=== PATIENT | female | born 1960 | race Caucasian/White ===

== ENCOUNTER → 2022-06-29 13:50 | Outpatient (BNVA) | payer OTHER, SELFPAY | PROVIDERS: Family Provider Family Medicine; PCP Family Medicine; Visit Provider Family Medicine | DX: Z12.31 Encounter for screening mammogram for malignant neoplasm of breast (principal); N81.10 Cystocele, unspecified; N93.9 Abnormal uterine and vaginal bleeding, unspecified; Z13.6 Encounter for screening for cardiovascular disorders; R53.83 Other fatigue; J32.9 Chronic sinusitis, unspecified; M19.90 Unspecified osteoarthritis, unspecified site | CPT/HCPCS: 80053; 80061; 82306; 82607; 83540; 84443; 85025 ==

== ENCOUNTER 2022-07-07 09:02 | Outpatient (CLI) | payer OTHER, SELFPAY ==
--- NOTE | 2022-07-07 09:12 | MM_ITS ---
WS: [id number] VIEWS: MLO and CC views both breasts. 3D digital tomosynthesis is also included in this exam. Comparison made with prior exam of . 04/29/2015.. Findings: There is an 8 mm nodular density with irregular margination in the upper outer quadrant of the left b reast at mid depth. No suspicious calcification or architectural distortion in either breast. There a re additional benign-appearing nodules in both breasts. There are no new findings in the right breast since the last exam. Magnification spot compression images of the left breast in the MLO and CC view s would be recommended in addition to a 90 degrees lateral view of the left breast. Regional ultrasou nd of this area is also indicated.Scattered fibroglandular densities in both breasts. MM/[place] [id number] Impression: BI-RADS: 0-Incomplete: Need additional imaging evaluation FOLLOW-UP: See Report This mammogram was also analyzed by the Computer Aided Detection System R2 Imag e Vice President Quality Assurance.
== END 2022-07-07 09:03 | disposition home or self-care (01) ==
LOC: RAD 09:06
PROVIDERS: PCP Family Medicine; Visit Provider Family Medicine
DX: Z12.31 Encounter for screening mammogram for malignant neoplasm of breast (principal)
CPT/HCPCS: 77063; 77067; 80053; 80061; 82306; 82607; 83540; 84443; 85025

== ENCOUNTER → 2022-08-13 10:27 | Outpatient (BNVA) | payer OTHER, SELFPAY | PROVIDERS: PCP Family Medicine; Referring Provider Family Medicine; Visit Provider Obstetrics & Gynecology | DX: Z01.419 Encounter for gynecological examination (general) (routine) without abnormal findings (principal); N95.0 Postmenopausal bleeding; N84.1 Polyp of cervix uteri; N81.10 Cystocele, unspecified | CPT/HCPCS: 83036; 83525; 84443; 87624; 88305 ==

== ENCOUNTER 2022-08-16 09:10 | Outpatient (CLI) | payer OTHER, SELFPAY ==
--- NOTE | 2022-08-16 09:30 | MM_ITS ---
WS: [id number] ADDITIONAL VIEWS LEFT MAMMOGRAM with tomosynthesis. LEFT BREAST ULTRASOUND HISTORY: ABNORMAL MAMMO COMPARISON: 07/07/2022, 04/29/2015 LEFT MAMMOGRAM: Spot compression views and true ML with tomosynthesis and sympathetic mammography. New slightly spiculated nodule persists upper outer quadrant of the LEFT breast near 2:00 middle dept h. Asymmetry measures approximately 5 to 6 mm. Margins are very slightly lobulated. LEFT BREAST ULTRASOUND 2-D and color Doppler imaging submitted. Hypoechoic mass with shadowing in the LEFT breast at 2:00, 5 cm from nipple measures 3.3 x 3 mm. This corresponds to the mammographic abnormality. MM/[place] [id number] IMPRESSION: BI-RADS: 4-Suspicious Finding-Biopsy Should Be Considered FOLLOW UP: Biopsy Recommended Ultrasound-guided biopsy recommended shadowing hypoechoic mass LEFT breast at 2 :00. Notified Daisy Chino MD at 08/16/2022 11:07 AM.
== END 2022-08-16 09:11 | disposition home or self-care (01) ==
PROVIDERS: PCP Family Medicine; Visit Provider Family Medicine
DX: R92.8 Other abnormal and inconclusive findings on diagnostic imaging of breast (principal); N63.11 Unspecified lump in the right breast, upper outer quadrant
CPT/HCPCS: 76642; 77061; G0279

== ENCOUNTER 2022-09-01 13:37 | Outpatient (CLI) | payer OTHER, SELFPAY ==
--- NOTE | 2022-09-01 14:00 | US_ITS ---
WS: [id number] ULTRASOUND-GUIDED LEFT BREAST BIOPSY CLINICAL INFORMATION: ABNORMAL MAMMO COMPARISON: August 16, 2022 FINDINGS: The procedure including risks, benefits, and complications were discussed with the patient who agreed to proceed. Using sterile technique patient was prepped and draped in the usual sterile fashion. Aft er 1% lidocaine utilizing real-time ultrasound guidance 5 14-gauge cores were obtained of the LEFT br east lesion at the 2:00 o'clock position 5 cm from the nipple. Subsequently a titanium clip was place d in the biopsy cavity. No immediate complications. PATHOLOGY DEMONSTRATES Breast, left, 2 o'clock, 5 cm from nipple, ultrasound-guided biopsy: - Benign breast tissue with fibro-adenomatoid change and focal calcification. - No malignancy identified. US/[place] [id number] IMPRESSION: 1. Uncomplicated ultrasound-guided LEFT breast biopsy. 2. The pathology demonstrates benign breast tissue with fibroadenomatoid trevino e. No malignancy. 3. Recommend return to annual screening mammography. BI-RADS: 2-Benign FOLLOW UP: 1 Year Follow-up
== END 2022-09-01 13:38 | disposition home or self-care (01) ==
LOC: RAD 13:49
PROVIDERS: PCP Family Medicine; Visit Provider Family Medicine
DX: R92.8 Other abnormal and inconclusive findings on diagnostic imaging of breast (principal); N81.4 Uterovaginal prolapse, unspecified; R93.89 Abnormal findings on diagnostic imaging of other specified body structures
CPT/HCPCS: 19083; 76830; 88305

== ENCOUNTER → 2022-09-16 11:05 | Outpatient (BNVA) | payer OTHER, SELFPAY | PROVIDERS: PCP Family Medicine; Visit Provider Obstetrics & Gynecology | DX: Z01.419 Encounter for gynecological examination (general) (routine) without abnormal findings (principal) | CPT/HCPCS: 87624 ==

== ENCOUNTER 2022-09-21 10:37 | Day surgery (SDC) | payer OTHER, SELFPAY ==
[2022-09-20 09:39] VITALS: BMI 41.1
[2022-09-21] VITALS (9 sets, daily range): BP systolic 121–188; BP diastolic 73–101; PULSE 63–77; RESP 10–25; TEMP 36.1–36.7; O2SAT 92–98
[2022-09-21] MEDS: sodium chloride 0.9% 1,000 ML 30 ML IV (11:28)
--- NOTE | 2022-09-21 12:12 | W.PM.OPSUD ---
Surgery/Procedure H&P Update DATE OF PROCEDURE: September 21, 2022 DATE H&P PERFORMED: 09/16/22 H&P UPDATE INFORMATION: I have reviewed H&P completed within last 30 days, I have examined patient prior to procedure and No changes to prior documentation PREOP DIAGNOSIS: morbid obesity, pmb, thickened endometrium PLANNED PROCEDURE: Operation Date: 09/21/22 12:25 Proposed Procedures p Hysteroscopy, dilation and curettage with Myosure 35757,[id number],N95.0(Not Applicable) - Virginia Resendiz MD s Dilation And Curettage (D&C)(Not Applicable) - Virginia Resendiz MD Related Problem List Diagnoses (1) Thickened endometrium: (2) Morbid obesity: (3) PMB (postmenopausal bleeding):
--- NOTE | 2022-09-21 12:35 | P.ANESASSM_ITS ---
Pre-Anesthetic Assessment Height/Weight: Height 1.63 m Weight 108.862 kg Temp Pulse Resp BP Pulse Ox O2 Del Method 97.3 F L 71 18 157/94 96 Room Air 09/21/22 10:55 09/21/22 10:55 09/21/22 10:55 09/21/22 11:23 09/21/22 10:55 09/21/22 11:01 Preop Diagnosis: morbid obesity, pmb, thickened endometrium Operation Date: 09/21/22 12:25 Proposed Procedures p Hysteroscopy, dilation and curettage with Myosure [id number],N95.0(Not Applicable) - Virginia Resendiz MD s Dilation And Curettage (D&C)(Not Applicable) - Virginia Resendiz MD Familial anesthetic complications: none Was Beta Lamont taken within 24 hours: N/A Was Clonidine taken within 24 hours: N/A Last intake: Intake Last Liquid Date 09/20/22 Last Liquid Time 21:00 Last Solid Date 09/20/22 Last Solid Time 20:30 Social No alcohol and No tobacco Exam alert, oriented x 3, clear to auscultation bilaterally and regular rate & rhythm Airway Submandibular: within normal limits Cervical ROM: within normal limits Mallampati: Class II Dentition: full Metabolic Diabetes Mellitus and Morbid Obesity [facility] [place] Osteoarthritis/DJD Anesthetic Plan ASA status: 2 Anesthesia: General Medications/Allergies Home Medications Medication Instructions Recorded Confirmed Last Taken Type loratadine 10 mg tablet (Claritin) 10 mg PO DAILY PRN allergic 06/29/22 09/20/22 09/20/22 History symptoms ergocalciferol (vitamin D2) 1,250 1,250 mcg PO .weekly #4 caps 08/12/22 09/20/22 09/16/22 Rx mcg (50,000 unit) capsule prenat.vits,anaya,vrk-pfob-fedfw 1 tab PO DAILY 08/13/22 09/20/22 09/20/22 History Glucosamine Chondroitin 1 tab PO BID 09/20/22 09/20/22 09/20/22 History Allergies Allergy/AdvReac Type Severity Reaction Status Date / Time Sulfa (Sulfonamide Allergy Intermediate ALGY-Rash Verified 09/20/22 09:36 Antibiotics) Current Medications Generic Name Dose Route Start Last Admin Trade Name Freq PRN Reason Stop Dose Admin Sodium Chloride 1,000 mls @ 30 mls/hr 09/21/22 10:45 09/21/22 11:28 Sodium Chloride 0.9% IV 09/22/22 10:44 30 mls/hr .Q24H MELLISSA Administration PFSH Anesthesia Medical History delivery delivered Family History Father Hypertension Mother Hypertension Denies family history of Colon cancer Ovarian cancer Diabetes Heart disease Hypercholesteremia Breast cancer Uterine cancer Thyroid disease Stroke Social History Smoking and tobacco status: never smoked Alcohol intake: former Former alcohol use details: occational alcohol Substance/Drug Use: never Adopted: No Lives independently: Yes Marital status: Current occupational exposures/hazards: No Data Anesthesia Cardiac Studies: No Data to Display
[2022-09-21] MEDS: ceFAZolin 3,000 MG in sodium chloride 0.9% (100 ml) 100 ML 200 MG IV (12:40)
--- NOTE | 2022-09-21 13:18 | P.OP_ITS ---
Operative Report Date of procedure: September 21, 2022 Pre-op diagnosis: Preop Diagnosis morbid obesity, pmb, thickened endometrium Post-op diagnosis: same Post-op findings: multiple polyps and fibroids and excessive tissue Procedure done: hysteroscopy, dilation and curettage with myosure Specimens removed/disposition: endometrial curettings to pathology Surgeon: Virginia Resendiz Anesthesia: General Estimated blood loss (mL): 0 IV fluids (mL): 400 Complications: none Findings: 8 week sized uterus 125 ml of hysteroscopy deficit Condition: stable Disposition: PACU Procedure: The patient was taken to the operating room where monitored anesthesia was administered and to be adequate. She was prepped and draped in the normal sterile fashion in the dorsal lithotomy position in [facility]. A weighted speculum was placed into the vagina and the anterior lip of the cervix grasped with a single-tooth tenaculum. The uterus was sounded to 8 cm. The cervix was dilated to 16 [place]. The hysteroscope was advanced into the endometrial cavity. There was multiple polyps and fibroids and excessive tissue visualized. The MyoSure device was activated and the tissue was removed. Pictures were taken pre and post procedure. All instruments were removed. The patient tolerated the procedure well. Sponge lap and needle counts were correct x3. She was taken to the recovery room in stable condition.
--- NOTE | 2022-09-21 13:24 | PM.DCS ---
Discharge Providers Date of Admission: 09/21/22 Date of Discharge: September 21, 2022 Attending Provider at Admission: Virginia Resendiz md Attending Provider at Discharge: Virginia Resendiz MD Primary Care Provider: Daisy Chino MD Diagnoses at Discharge Discharge Diagnosis (1) Thickened endometrium: Status: Acute (2) Morbid obesity: Status: Acute (3) PMB (postmenopausal bleeding): Status: Acute Reason for Visit Reason for Visit: N95.0 Hospital Course Hospital Course The patient was admitted for surgery. She did well postoperatively and was ready for discharge Discharge Data Studies Completed and Pending Pending at discharge Category Date Time Status Pathology: Surgical [PTH] Routine Pth 09/21/22 12:59 Ordered Vitals Last Vital Signs Temp 98.1 F 09/21/22 13:14 Pulse 63 09/21/22 13:20 Resp 11 L 09/21/22 13:20 BP 121/73 09/21/22 13:20 Pulse Ox 94 09/21/22 13:20 O2 Del Method Simple Mask 09/21/22 13:20 O2 Flow Rate 8 09/21/22 13:20 Discharge Plan Discharge Patient Disposition: Home Condition: Stable Prescriptions: Continued loratadine [Claritin] 10 mg tablet 10 mg PO DAILY PRN (Reason: allergic symptoms) prenat.vits,anaya,uzm-hokz-hxxov Tablet 1 tab PO DAILY ergocalciferol (vitamin D2) 1,250 mcg (50,000 unit) capsule 1,250 mcg PO .weekly Qty: 4 1RF Glucosamine Chondroitin 1 tab PO BID Discharge Orders: Discharge Order (Routine); Ordered 09/21/22 Ordered By: Virginia Resendiz Discharge Attestations Time Spent in Discharge Care*: less than 30 min Quality Metrics Clinical Quality Measures [ No reported AMI, CVA or VTE this stay] Coding Level of Care Code Acute Code for Chg Fwd Diagnoses Thickened endometrium R93.89 Morbid obesity E66.01 PMB (postmenopausal bleeding) N95.0
--- NOTE | 2022-09-21 13:24 | SUR.PHASEI ---
5294-Patient opened eyes and is arousable, oral airway removed
--- NOTE | 2022-09-21 14:49 | ANE.PACU2 ---
Inpatient post-anesthesia follow up: Airway intact: Yes Vital signs: Temperature 97 F Pulse Rate 71 Respiratory Rate 18 Blood Pressure 166/92 Pulse Oximetry 95 Oxygen Delivery Me thod Room Air Oxygen Flow Rate 8 Fraction of Inspir ed Oxygen Hydration adequate: Yes Nausea and vomiting: No Pain level: 2 Mental status: Baseline
== END 2022-09-21 14:19 | disposition home or self-care (01) ==
PROVIDERS: PCP Family Medicine; Visit Provider Obstetrics & Gynecology
PROC: 0UDB8ZZ Extraction of Endometrium, Via Natural or Artificial Opening Endoscopic (ICD-10-PCS; CPT 58558; principal; 2022-09-21 12:15)
PROC: (CPT 58120; 2022-09-21 12:15)
DX: D26.1 Other benign neoplasm of corpus uteri (principal); N95.0 Postmenopausal bleeding; E66.01 Morbid (severe) obesity due to excess calories; Z68.41 Body mass index [BMI] 40.0-44.9, adult; R93.89 Abnormal findings on diagnostic imaging of other specified body structures; E11.9 Type 2 diabetes mellitus without complications
CPT/HCPCS: 58558; 88305; J1100; J1200; J2405; J2704; J3010; J7030

== ENCOUNTER 2022-09-29 17:55 | Emergency (ER) | payer OTHER, SELFPAY ==
[2022-09-29 18:06] VITALS: BP 185/114; PULSE 77; RESP 16; TEMP 36.6; O2SAT 98; BMI 41.1
[2022-09-29 18:57] LABS: Basophils # 0.1 10^3/uL (0.0-0.1); Basophils % 0.4 %; Eosinophils # 0.1 10^3/uL (0.0-0.8); Eosinophils % 0.4 %; Hematocrit 42.6 % (37.0-47.0); Hemoglobin 13.5 g/dL (11.5-15.3); Lymphocytes # 2.3 10^3/uL (0.8-4.8); Lymphocytes % 14.1 %; Mean Corpuscular HGB Conc 31.7 g/dL (30.0-36.0); Mean Corpuscular Hemoglobin 27.6 pg (28.0-34.0); Mean Corpuscular Volume 87.1 fl (81-99); Mean Platelet Volume 10.2 fL (7.4-10.4); Monocytes # 1.1 10^3/uL (0.2-0.9); Monocytes % 6.4 %; Neutrophils # 12.76 10^3/uL (1.8-7.7); Neutrophils % 78.2 %; Nucleated Red Blood Cells % 0 %; Platelet Count 293 10^3/cmm (130-400); Red Blood Count 4.89 10^6/uL (4.1-5.3); Red Cell Distribution Width 14.4 % (12.1-15.1); White Blood Count 16.3 10^3/uL (4.0-10.0)
[2022-09-29 20:10] VITALS: BP 167/99; PULSE 71; RESP 19; TEMP 36.8; O2SAT 96
[2022-09-29 20:16] LABS: Alanine Aminotransferase 18 U/L (0-33); Albumin Level 3.9 g/dL (3.5-5.2); Anion Gap 16.5 (5-19); Aspartate Amino Transferase 15 U/L (0-32); Blood Urea Nitrogen 15 mg/dL (8-23); Calcium 8.7 mg/dL (8.5-10.5); Carbon Dioxide 24 mmol/L (22-29); Chloride 103 mmol/L (98-107); Creatinine Clr Calc Pharmacy 78.1325; Globulin 2.6 g/dL (1.3-4.6); Glomerular Filtration Rate 63.4 mL/min (90-130); Glucose 131 mg/dL (65-115); Osmolality Calculated 293 mOsm/kg (285-295); Potassium 3.5 mmol/L (3.5-5.1); Sodium 140 mmol/L (136-145); Total Bilirubin 0.6 mg/dL (0.15-1.2); Total Protein 6.5 g/dL (6.6-8.7)
[2022-09-29 20:17] LABS: Alkaline Phosphatase 79 U/L (35-105); Lipase 24 U/L (13-60)
[2022-09-29 21:44] LABS: Add Urine Microscopic? YES; Bilirubin Urine Neg (Negative); Blood Urine 3+ (Negative); Glucose Urine UA Norm (Normal); Ketones Urine 1+ (Negative); Leukocyte Esterase Urine Negative (Negative); Nitrate Urine Negative (Negative); Protein Urine Neg (Negative); Urine Appearance Clear (CLEAR); Urine Color Yellow (Yellow); Urobilinogen Urine Neg (Negative); WBC Urine 0-4 /hpf (0-5); pH Urine 5 (5-7)
[2022-09-29 21:45] LABS: Add Urine Culture? No; Bacteria Urine 1+ /hpf; Mucus Urine 2+ /hpf
--- NOTE | 2022-09-29 22:27 | CTR_ITS ---
PROCEDURE INFORMATION: Exam: CT Abdomen And Pelvis Without Contrast Exam date and time: 09/29/2022 10:35 PM Age: 62 years old Clinical indication: Nausea and vomiting; Abdominal pain; Prior surgery; Surgery date: 6+ months; Surgery type: Csection; Patient HX: Left flank pain with n/v TECHNIQUE: Imaging protocol: Computed tomography of the abdomen and pelvis without contrast. Radiation optimization: All CT scans at this facility use at least one of these dose optimization techniques: automated exposure control; mA and/or kV adjustment per patient size (includes targeted exams where dose is matched to clinical indication); or iterative reconstruction. REPORTING DATA: Count of CT and Cardiac NM exams in prior 12 months: This patient has received 0 known CTs and 0 known cardiac nuclear medicine studies in the 12 months prior to the current study. COMPARISON: US transvaginal [id number] 09/01/2022 8:15 AM RADIATION DOSE METRICS: Total DLP (mGy-cm): 1032.43 FINDINGS: Liver: Hepatic steatosis. Gallbladder and bile ducts: Cholelithiasis. Pancreas: Normal. No ductal dilation. Spleen: Normal. No splenomegaly. Adrenal glands: Normal. No mass. Kidneys and ureters: Mild left hydronephrosis and hydroureter with a 3.4 mm left ureterovesical junction calculus. Mild associated left perinephric edema, please correlate for possible pyelonephritis. Stomach and bowel: Small hiatal hernia. Appendix: No evidence of appendicitis. Intraperitoneal space: Supraumbilical and umbilical small to moderate-sized omental fat containing hernias. Vasculature: Unremarkable. No abdominal aortic aneurysm. Lymph nodes: Unremarkable. No enlarged lymph nodes. Urinary bladder: Unremarkable as visualized. Reproductive: Unremarkable as visualized. Bones/joints: Unremarkable. No acute fracture. Soft tissues: Unremarkable. CT/CT kidney stone [id number] IMPRESSION: 1. Mild left hydronephrosis and hydroureter with a 3.4 mm left ureterovesical junction calculus. Mild associated left perinephric edema, please correlate for possible pyelonephritis. 2. Supraumbilical and umbilical small to moderate-sized omental fat containing hernias. 3. Hepatic steatosis. 4. Cholelithiasis. 5. Small hiatal hernia.
[2022-09-29 22:30] VITALS: BP 173/103; PULSE 81; RESP 24; O2SAT 99
--- NOTE | 2022-09-29 22:31 | W.ED.ABDPA2 ---
HPI - Abdominal Pain General: Chief Complaint: Abdominal Pain Stated Complaint: abd pain Time Seen by Provider: 09/29/22 21:58 Source: patient Mode of arrival: ambulatory Limitations: no limitations History of Present Illness: 62-year-old female who states that she started having severe left-sided flank pain this morning states it feels like it comes in waves pain is a 9 out of 10 she states that nothing makes it worse denies any tenderness to touch states she has had vomiting with her pain no history of kidney stones denies any dysuria denies any fevers. Associated Symptoms: Reports nausea and vomiting; Denies chills, diarrhea, dysuria and fever(s) Review of Systems Const: Denies: fever(s) or chills Eyes: Denies: eye discomfort ENMT: Denies: throat pain or dental pain Card: Denies: chest pain Resp: Denies: dyspnea GI: Reports: nausea and vomiting; Denies: abdominal pain or diarrhea : Reports: flank pain; Denies: dysuria Musc: Denies: neck pain or back pain Skin/Breast: Denies: rash Neuro: Denies: headache(s) PFSH ED PFSH: Medical History delivery delivered Family History Father Hypertension Mother Hypertension Denies family history of Colon cancer Ovarian cancer Diabetes Heart disease Hypercholesteremia Breast cancer Uterine cancer Thyroid disease Stroke Social History Smoking and tobacco status: never smoked Alcohol intake: former Former alcohol use details: occational alcohol Substance/Drug Use: never Adopted: No Lives independently: Yes Marital status: Current occupational exposures/hazards: No Physical Exam Const: COMMON NORMALS: no acute distress, patient oriented x3 and healthy appearing HENMT: COMMON NORMALS: normocephalic and atraumatic HEAD & SCALP: normocephalic and atraumatic Eye: COMMON NORMALS: conjunctivae normal CONJUNCTIVA: Yes conjunctivae normal Neck/C-Spine: COMMON NORMALS: full ROM and supple Chest: COMMONS NORMALS: normal inspection of the chest and normal palpation of entire chest wall Resp: COMMON NORMALS: normal respiratory effort, No retractions, No use of accessory muscles and clear to auscultation bilaterally AUSCULTATION: clear to auscultation bilaterally Cardio: COMMON NORMALS: regular rate, regular rhythm and No murmurs present (Cardio) RATE: regular rate RHYTHM: regular rhythm GI: COMMON NORMALS: Normal to inspection, nondistended, normoactive bowel sounds present, Soft to palpation, non-tender and no masses PALPATION: Yes Soft to palpation Extremity: COMMON NORMALS: normal to inspection and full ROM Neuro: COMMON NORMALS: patient oriented x3, moves all extremities and no focal motor deficits Psych: COMMON NORMALS: mental status grossly normal, Normal thought process present and cooperative THOUGHT PROCESS: Normal thought process present Skin: COMMON NORMALS: no rashes or lesions noted and no wounds GENERAL SKIN EXAM: no rashes or lesions noted Course Vital Signs: Vital signs: Vital Signs Temperature 98.2 F 09/29/22 20:10 Pulse Rate 81 09/29/22 22:30 Respiratory Rate 22 H 09/29/22 22:48 Blood Pressure 173/103 09/29/22 22:30 Pulse Oximetry 99 09/29/22 22:30 Oxygen Delivery Me thod Room Air 09/29/22 22:30 MDM - Abdominal Pain Medical Decision Making Patient presents here with flank pain she does have a kidney stone she should build pass the stone her pain is improved here she stable for discharge we will discharge with a strainer she is to follow-up return if worsening we will place her on hydrocodone for pain. Medical Records I reviewed the patient's medical records. Lab Data I reviewed the patient's lab results. 09/29/22 18:36 09/29/22 18:36 Labs/Radiology: Radiology Impressions Abdomen/Pelvis CT 09/29/22 22:27 IMPRESSION: 1. Mild left hydronephrosis and hydroureter with a 3.4 mm left ureterovesical junction calculus. Mild associated left perinephric edema, please correlate for possible pyelonephritis. 2. Supraumbilical and umbilical small to moderate-sized omental fat containing hernias. 3. Hepatic steatosis. 4. Cholelithiasis. 5. Small hiatal hernia. Laboratory Results WBC 16.3 10^3/uL (4.0-10.0) H 09/29/22 18:36 RBC 4.89 10^6/uL (4.1-5.3) 09/29/22 18:36 Hgb 13.5 g/dL (11.5-15.3) 09/29/22 18:36 Hct 42.6 % (37.0-47.0) 09/29/22 18:36 MCV 87.1 fl (81-99) 09/29/22 18:36 MCH 27.6 pg (28.0-34.0) L 09/29/22 18:36 MCHC 31.7 g/dL (30.0-36.0) 09/29/22 18:36 RDW 14.4 % (12.1-15.1) 09/29/22 18:36 Plt Count 293 10^3/cmm (130-400) 09/29/22 18:36 MPV 10.2 fL (7.4-10.4) 09/29/22 18:36 Neut % (Auto) 78.2 % 09/29/22 18:36 Lymph % (Auto) 14.1 % 09/29/22 18:36 [place] % (Auto) 6.4 % 09/29/22 18:36 Eos % (Auto) 0.4 % 09/29/22 18:36 Baso % (Auto) 0.4 % 09/29/22 18:36 Neut # (Auto) 12.76 10^3/uL (1.8-7.7) H 09/29/22 18:36 Lymph # (Auto) 2.3 10^3/uL (0.8-4.8) 09/29/22 18:36 [place] # (Auto) 1.1 10^3/uL (0.2-0.9) H 09/29/22 18:36 Eos # (Auto) 0.1 10^3/uL (0.0-0.8) 09/29/22 18:36 Baso # (Auto) 0.1 10^3/uL (0.0-0.1) 09/29/22 18:36 Nucleated RBC % (auto) 0 % 09/29/22 18:36 Nucleated RBCs # 0.0 /100WBC 09/29/22 18:36 Sodium 140 mmol/L (136-145) 09/29/22 18:36 Potassium 3.5 mmol/L (3.5-5.1) 09/29/22 18:36 Chloride 103 mmol/L (98-107) 09/29/22 18:36 Carbon Dioxide 24 mmol/L (22-29) 09/29/22 18:36 Anion Gap 16.5 (5-19) 09/29/22 18:36 BUN 15 mg/dL (8-23) 09/29/22 18:36 Creatinine 0.9 mg/dL (0.5-0.9) 09/29/22 18:36 GFR Calculation 63.4 mL/min (90-130) L 09/29/22 18:36 Glucose 131 mg/dL (65-115) H 09/29/22 18:36 Calculated Osmolality 293 mOsm/kg (285-295) 09/29/22 18:36 Calcium 8.7 mg/dL (8.5-10.5) 09/29/22 18:36 Total Bilirubin 0.6 mg/dL (0.15-1.2) 09/29/22 18:36 AST 15 U/L (0-32) 09/29/22 18:36 ALT 18 U/L (0-33) 09/29/22 18:36 Alkaline Phosphatase 79 U/L (35-105) 09/29/22 18:36 Total Protein 6.5 g/dL (6.6-8.7) L 09/29/22 18:36 Albumin 3.9 g/dL (3.5-5.2) 09/29/22 18:36 Globulin 2.6 g/dL (1.3-4.6) 09/29/22 18:36 Lipase 24 U/L (13-60) 09/29/22 18:36 Urine Color Yellow (Yellow) 09/29/22 20:51 Urine Appearance Clear (CLEAR) 09/29/22 20:51 Urine pH 5 (5-7) 09/29/22 20:51 Ur Specific [place] 1.020 (1.005-1.030) 09/29/22 20:51 Urine Protein Neg (Negative) 09/29/22 20:51 Urine Glucose (UA) Norm (Normal) 09/29/22 20:51 Urine Ketones 1+ (Negative) H 09/29/22 20:51 Urine Blood 3+ (Negative) H 09/29/22 20:51 Urine Nitrate Negative (Negative) 09/29/22 20:51 Urine Bilirubin Neg (Negative) 09/29/22 20:51 Urine Urobilinogen Neg mg/dL (Negative) 09/29/22 20:51 Ur Leukocyte Esterase Negative (Negative) 09/29/22 20:51 Urine RBC 5-10 /hpf (0-2) H 09/29/22 20:51 Urine WBC 0-4 /hpf (0-5) H 09/29/22 20:51 Ur Squamous Epith Cells 5-10 /hpf (0-5) H 09/29/22 20:51 Amorphous Sediment Not Reportable 09/29/22 20:51 Urine Bacteria 1+ /hpf (NONE) H 09/29/22 20:51 Urine Mucus 2+ /hpf 09/29/22 20:51 Discharge Plan Discharge Patient Disposition: Home Clinical Impression: Kidney stone Condition: Stable Prescriptions: New hydrocodone-acetaminophen 5-325 mg tablet 1 tab PO Q6H PRN (Reason: pain) Qty: 14 0RF ondansetron 4 mg tablet,disintegrating 4 mg PO Q6H PRN (Reason: nausea and vomiting) Qty: 14 0RF Flomax 0.4 mg capsule 0.4 mg PO DAILY Qty: 4 0RF No Action loratadine [Claritin] 10 mg tablet 10 mg PO DAILY PRN (Reason: allergic symptoms) prenat.vits,anaya,vez-axjm-qngon Tablet 1 tab PO DAILY ergocalciferol (vitamin D2) 1,250 mcg (50,000 unit) capsule 1,250 mcg PO .weekly Qty: 4 1RF Glucosamine Chondroitin 1 tab PO BID Discharge Orders: Discharge ED (Routine); Ordered 09/29/22 Ordered By: Jane Wells Referrals: Yao Damian MD [Physician] - 1-3 days Daisy Chino MD [Primary Care Provider] - 1-3 days Discharge Diet: Advance as tolerated Discharge Activity: Resume usual activity Patient Instructions: Kidney Stones (ED), Opioid Safety Coding Level of Care Code ED Backend Developer for Jose Perez
[2022-09-29] MEDS: sodium chloride 0.9% 1,000 ML 999 ML IV (22:36)
[2022-09-29 22:48] VITALS: RESP 22
[2022-09-29] MEDS: HYDROmorphone 1 mg/mL INJ 1 mL 0.5 MG IVP (22:48)
[2022-09-29] MEDS: ondansetron 2 mg/ML SDV 2 mL 4 MG IVP (22:48)
[2022-09-29 23:49] VITALS: BP 167/80; PULSE 90; RESP 18; O2SAT 94
--- NOTE | 2022-09-30 07:26 | DCPLANNER ---
Addendum entered by Pao Stovall 10/12/22 15:37: Clinic received patients information, clinic will call patient with appointment information. Addendum entered by Pao Stovall 09/30/22 11:12: gas station manager received the following message from the urology clinic regarding follow up appointment: Dr. Damian will be off next week-please send elsewhere. gas station manager called patient and spoke with patient she stated that she would like for her referral to be sent to Dr. Griffin at [facility]. gas station manager faxed patients information to the office of Dr. Griffin. Original Note: gas station manager had message to schedule a follow up appointment for patient with urology. gas station manager sent patients information to the front office staff at urology. Patients information will be printed and reviewed. Clinic will call patient with appointment information.
== END 2022-09-29 23:52 | disposition home or self-care (01) ==
PROVIDERS: Emergency Provider Emergency Medicine; PCP Family Medicine
DX: N13.2 Hydronephrosis with renal and ureteral calculous obstruction (principal)
CPT/HCPCS: 36415; 74176; 80053; 81001; 83690; 85025; 96361; 96374; 96375; 99284; J1170; J2405; J7030

== ENCOUNTER 2022-11-02 18:46 | Observation (INO) | payer OTHER, SELFPAY ==
[2022-11-01 14:30] LABS: Basophils # 0.1 10^3/uL (0.0-0.1); Basophils % 0.7 %; Eosinophils # 0.1 10^3/uL (0.0-0.8); Eosinophils % 1.2 %; Hematocrit 46.8 % (37.0-47.0); Hemoglobin 14.9 g/dL (11.5-15.3); Lymphocytes # 2.8 10^3/uL (0.8-4.8); Lymphocytes % 27.7 %; Mean Corpuscular HGB Conc 31.8 g/dL (30.0-36.0); Mean Corpuscular Hemoglobin 27.2 pg (28.0-34.0); Mean Corpuscular Volume 85.4 fl (81-99); Mean Platelet Volume 10.4 fL (7.4-10.4); Monocytes # 0.7 10^3/uL (0.2-0.9); Monocytes % 6.6 %; Neutrophils % 63.5 %; Nucleated Red Blood Cells % 0 %; Platelet Count 312 10^3/cmm (130-400); Red Blood Count 5.48 10^6/uL (4.1-5.3); Red Cell Distribution Width 14.1 % (12.1-15.1); White Blood Count 9.9 10^3/uL (4.0-10.0)
--- NOTE | 2022-11-01 15:06 | ANES.PREANE2 ---
Pre-Anesthetic Assessment Height/Weight: Height 1.63 m Weight 108.862 kg Operation Date: 11/02/22 12:05 Proposed Procedures p Laparoscopic assisted vaginal hysterectomy, bilateral salpingo-oophorectmy 30688,N80.03,37915(Not Applicable) - Virginia Resendiz MD Familial anesthetic complications: none Was Beta Lamont taken within 24 hours: N/A Was Clonidine taken within 24 hours: N/A Social No alcohol and No tobacco Exam alert, oriented x 3, clear to auscultation bilaterally and regular rate & rhythm Airway Submandibular: within normal limits Cervical ROM: within normal limits Mallampati: Class II Dentition: full Metabolic Morbid Obesity Anesthetic Plan ASA status: 2 Anesthesia: General Medications/Allergies Home Medications Medication Instructions Recorded Confirmed Last Taken Type loratadine 10 mg tablet (Claritin) 10 mg PO DAILY PRN allergic 06/29/22 11/01/22 11/01/22 History symptoms prenat.vits,anaya,yqk-diwn-gliif 1 tab PO DAILY 08/13/22 11/01/22 11/01/22 History Glucosamine Chondroitin 1 tab PO BID 09/20/22 11/01/22 11/01/22 History Allergies Allergy/AdvReac Type Severity Reaction Status Date / Time Sulfa (Sulfonamide Allergy Intermediate ALGY-Rash Verified 11/01/22 14:03 Antibiotics) [facility] Anesthesia Medical History delivery delivered Family History Father Hypertension Mother Hypertension Denies family history of Colon cancer Ovarian cancer Diabetes Heart disease Hypercholesteremia Breast cancer Uterine cancer Thyroid disease Stroke Social History Smoking and tobacco status: never smoked Alcohol intake: former Former alcohol use details: occational alcohol Substance/Drug Use: never Adopted: No Lives independently: Yes Marital status: Current occupational exposures/hazards: No Data Anesthesia 11/01/22 14:16 Short CBC 11/01/22 Range/Units 14:16 WBC 9.9 (4.0-10.0) 10^3/uL Hgb 14.9 (11.5-15.3) g/dL Hct 46.8 (37.0-47.0) % MCV 85.4 (81-99) fl Plt Count 312 (130-400) 10^3/cmm Neut % (Auto) 63.5 % Neut # (Auto) 6.30 (1.8-7.7) 10^3/uL Cardiac Studies: No Data to Display
[2022-11-02] VITALS (16 sets, daily range): BP systolic 112–161; BP diastolic 62–123; PULSE 78–103; RESP 13–18; TEMP 36.4–37.1; O2SAT 91–98; BMI 41.1
[2022-11-02] MEDS: sodium chloride 0.9% 1,000 ML 30 ML IV (10:36)
[2022-11-02] MEDS: acetaminophen 1,000 MG/100 ML PIGGYBACK 400 MG IV (10:37)
[2022-11-02] MEDS: scopolamine 1.5 Patch 1 PATCH TRANSDERMA (10:38)
[2022-11-02] MEDS: CELEcoxib 200 mg Capsule 400 MG PO (10:39)
[2022-11-02] MEDS: phenazopyridine 100 mg Tablet 200 MG PO ×2 (10:39→22:03)
[2022-11-02] MEDS: gabapentin 300 mg Capsule PO (10:40)
--- NOTE | 2022-11-02 12:52 | W.PM.OPSUD ---
Surgery/Procedure H&P Update DATE OF PROCEDURE: November 02, 2022 DATE H&P PERFORMED: 10/29/22 H&P UPDATE INFORMATION: I have reviewed H&P completed within last 30 days, I have examined patient prior to procedure and No changes to prior documentation PREOP DIAGNOSIS: PMB, morbid obesity PLANNED PROCEDURE: Operation Date: 11/02/22 12:05 Proposed Procedures p Laparoscopic assisted vaginal hysterectomy, bilateral salpingo-oophorectmy 07509,N80.03,53867(Not Applicable) - Virginia Resendiz MD Related Problem List Diagnoses (1) Uterine prolapse: (2) Thickened endometrium: (3) Morbid obesity: (4) PMB (postmenopausal bleeding):
--- NOTE | 2022-11-02 13:20 | P.ANESUD_ITS ---
Pre-Anesthetic Update Pre-Anesthetic Assessment: Date of Surgery/Procedure: 11/02/22 Preop Melissa gnosis: PMB, morbid obesity Proposed Procedure: Operation Date: 11/02/22 12:05 Proposed Procedures p Laparoscopic assisted vaginal hysterectomy, bilateral salpingo-oophorectmy 67634,N80.03,59843(Not Applicable) - Virginia Resendiz MD Any changes to Pre-Anesthetic Assessment?: No Last Intake: Intake Last Liquid Date 11/01/22 Last Liquid Time 22:00 Last Solid Date 11/01/22 Last Solid Time 20:30 Labs Last 48hrs: Short CBC 11/01/22 Range/Units 14:16 WBC 9.9 (4.0-10.0) 10^3/ uL Hgb 14.9 (11.5-15.3) g/dL Hct 46.8 (37.0-47.0) % MCV 85.4 (81-99) fl Plt Count 312 (130-400) 10^3/c mm Neut % (Auto) 63.5 % Neut # (Auto) 6.30 (1.8-7.7) 10^3/u L Blood Bank 11/01/22 14:16 Blood Type A Positive Rho(D) Type Positive Antibody Screen Negative Vitals: Temperature 97.5 F L 11/02/22 10:21 Temperature Source Temporal Artery S can 11/02/22 10:21 Pulse Rate 78 11/02/22 10:21 Respiratory Rate 18 11/02/22 10:21 Blood Pressure 161/123 11/02/22 10:21 Blood Pressure [place] n 135 11/02/22 10:21 Pulse Oximetry 94 11/02/22 10:21 Oxygen Delivery Me thod Room Air 11/02/22 10:21 Exam: Pre-Anes Outpt Exam: alert, oriented x 3, clear to auscultation bilaterally and regular rate & rhythm Cardiac Studies: No Data to Display
[2022-11-02] MEDS: ceFAZolin 2,000 MG in sodium chloride 0.9% (plus) 50 ML 100 MG IV ×2 (15:40→23:36)
[2022-11-02] MEDS: vasopressin 20 unit/mL INJ INJECTION (16:20)
--- NOTE | 2022-11-02 17:49 | PM.OP ---
Operative Report Date of procedure: November 02, 2022 Pre-op diagnosis: Preop Diagnosis PMB, morbid obesity Post-op diagnosis: same Post-op findings: 6 week sized uterus. normal appearing left tube and ovary. Non-visible right tube and ovary Adheion of omentum to abdominal wall. Procedure done: LAVH with left salpingoophorectomy Specimens removed/disposition: uterus and left tube and ovary to pathology Surgeon: Virginia Resendiz Anesthesia: General Estimated blood loss (mL): 100 IV fluids (mL): 1,300 Urine output (mL): 100 Complications: none Findings: due to patient body habitus and small uterus, unable to visualize pelvis well during laparoscopy. Large ventral hernia present. omentum taken down. Condition: stable Disposition: PACU Procedure: The patient was taken to the operating room where general anesthesia was administered and found to be adequate. She was prepped and draped in the normal sterile fashion in the dorsal lithotomy position in [facility]. A Malagon catheter was placed. A weighted speculum was placed into the vagina and the anterior lip of the cervix was grasped with a single tooth tenaculum. The Zumi uterine manipulator was placed. The weighted speculum was removed. The gloves were changed and attention was turned to the abdomen. A 5 mm LUQ incision was made and the veres needle inserted. A hanging drop test was used to confirm abdominal placedment. The abdomen was insufflated and a 5 mm supraumbilical incision was made. Using a 5 mm port with the camera, the port was placed into the abdomen. The abdomen was insufflated. Two low, lateral 5 mm ports were placed on the left and right under direct visualization from the camera. There was a large ventral hernia present containing omentum. This was taken down iwth the electric cautery device. The uterus was elevated out of the pelvis, but there was so much bowel around that it was not safe to use the cautery device. The procedure was stopped and attention was then turned to the vaginal portion of the procedure. The weighted speculum was placed into the vagina. The zumi manipulator was removed. The single tooth tenaculum was removed and replaced with the robbie's tenaculum. 10 mL of dilute Pitressin was injected at the vesicovaginal junction. A circumferential incision was made at the vesicovaginal junction and the vaginal mucosa reflected cephalad. The posterior peritoneum was entered sharply with the Metzenbaum scissors and the long weighted speculum replaced. Using the Osmel clamps the uterosacral ligaments were clamped cut and suture-ligated. The anterior peritoneum was entered sharply with the metzenbaum scissors. Then sequentially the uterine arteries and cardinal ligaments were clamped cut and suture-ligated. A single-tooth tenaculum was used to deliver the uterus. The utero-ovarian ligaments were clamped cut and suture-ligated bilaterally and the specimen was removed. The Osmel clamp was used on the left to clamp lateral to the tube and ovary. This speciment was removed. The pedicle was sutured with a figure of eight stitch. I was unable to visualize the right tube or ovary. There was good hemostasis with only mild bleeding from the cuff. The peritoneum was closed with a pursestring using 2-0 Vicryl. The vaginal cuff was closed with 0 Vicryl in a running locked pattern incorporating the uterosacral ligaments into the lateral aspects of the vaginal cuff. The Malagon catheter was removed and the cystoscope advanced into the bladder. The patient was given pyridium and bilateral spill was noted. There were no injuries or deficits noted in the bladder. The cystoscope was removed and the Malagon was replaced. Vaginal packing was placed for good hemostasis. The gloves and gowns were changed and attention was turned to the abdomen. The ports were closed with 2-0 monocryl with skin glue. The patient tolerated the procedure well. Sponge lap and needle counts were correct x3. She was taken to the recovery room in stable condition.
--- NOTE | 2022-11-02 18:31 | ANE.PACU2 ---
Inpatient post-anesthesia follow up: Airway intact: Yes Vital signs: Temperature 97.5 F Pulse Rate 93 Respiratory Rate 14 Blood Pressure 112/62 Pulse Oximetry 94 Oxygen Delivery Me thod Simple Mask Oxygen Flow Rate 8 Fraction of Inspir ed Oxygen Hydration adequate: Yes Nausea and vomiting: No Pain level: 3 Mental status: Baseline
--- NOTE | 2022-11-02 18:31 | PC.NURSE ---
Weaned to room air. SaO2 89-90% on RA Oxygen for supplement
--- NOTE | 2022-11-02 18:33 | PC.NURSE ---
Oral airway removed at 1821. Patient awake and following directions
[2022-11-02] MEDS: dextrose 5%-lactated ringers 1,000 ML 125 ML IV (20:11)
[2022-11-02] MEDS: HYDROcodone-acetaminophen 5-325 mg Tablet PO (20:11)
[2022-11-02] MEDS: simethicone 80 mg Chew PO (22:03)
[2022-11-02] MEDS: ketorolac 30 mg/mL INJ IVP (23:35)
[2022-11-03 00:15] VITALS: BP 144/78; PULSE 96; O2SAT 96
[2022-11-03 02:15] VITALS: BP 149/89; PULSE 100; O2SAT 91
[2022-11-03] MEDS: simethicone 80 mg Chew PO (05:47)
[2022-11-03] MEDS: ketorolac 30 mg/mL INJ IVP (05:47)
[2022-11-03] MEDS: HYDROcodone-acetaminophen 5-325 mg Tablet PO (05:47)
--- NOTE | 2022-11-03 05:47 | PM.DCS ---
Discharge Providers Date of Admission: 11/02/22 18:46 Date of Discharge: November 03, 2022 Attending Provider at Admission: Virginia Resendiz MD Attending Provider at Discharge: Virginia Resendiz MD Primary Care Provider: Daisy Chino MD Diagnoses at Discharge Discharge Diagnosis (1) Uterine prolapse: Status: Acute (2) Thickened endometrium: Status: Acute (3) Morbid obesity: Status: Acute (4) PMB (postmenopausal bleeding): Status: Acute Reason for Visit Reason for Visit: 81167 N80.03 Hospital Course Hospital Course The patient was admitted for surgery. she did well postoperatively and was ready for discharge on Day#1 Physical Exam Narrative: The patinet is doing well this morning. She has had her packing and catheter removed. She has been able to tolerate a regular diet, ambulate and pain is well controlled. Const: COMMON NORMALS: no acute distress, patient oriented x3, no limitations, alert and well nourished Resp: COMMON NORMALS: normal respiratory effort EFFORT & INSPECTION: Yes able to speak in complete sentences GI: COMMON NORMALS: Soft to palpation and non-tender PALPATION: Yes Soft to palpation Extremity: COMMON NORMALS: no calf tenderness Neuro: COMMON NORMALS: patient oriented x3 SENSORIUM/ORIENTATION: Yes alert Urinary Catheter Management: Malagon: Cath Placed During This Visit: yes Urinary Catheter Date of Insertion: 11/02/22 Urinary Catheter Time of Insertion: 16:19 Discharge Data Studies Completed and Pending Pending at discharge Category Date Time Status Hemagram Timed Lab 11/03/22 05:00 Uncollected Urine Culture Routine Lab 11/01/22 14:17 Received Urine Culture Routine Lab 11/02/22 16:12 Received Pathology: Surgical [PTH] Routine Pth 11/02/22 17:19 Ordered Laboratory Results WBC 9.9 10^3/uL (4.0-10.0) 11/01/22 14:16 RBC 5.48 10^6/uL (4.1-5.3) H 11/01/22 14:16 Hgb 14.9 g/dL (11.5-15.3) 11/01/22 14:16 Hct 46.8 % (37.0-47.0) 11/01/22 14:16 MCV 85.4 fl (81-99) 11/01/22 14:16 MCH 27.2 pg (28.0-34.0) L 11/01/22 14:16 MCHC 31.8 g/dL (30.0-36.0) 11/01/22 14:16 RDW 14.1 % (12.1-15.1) 11/01/22 14:16 Plt Count 312 10^3/cmm (130-400) 11/01/22 14:16 MPV 10.4 fL (7.4-10.4) 11/01/22 14:16 Neut % (Auto) 63.5 % 11/01/22 14:16 Lymph % (Auto) 27.7 % 11/01/22 14:16 [place] % (Auto) 6.6 % 11/01/22 14:16 Eos % (Auto) 1.2 % 11/01/22 14:16 Baso % (Auto) 0.7 % 11/01/22 14:16 Neut # (Auto) 6.30 10^3/uL (1.8-7.7) 11/01/22 14:16 Lymph # (Auto) 2.8 10^3/uL (0.8-4.8) 11/01/22 14:16 [place] # (Auto) 0.7 10^3/uL (0.2-0.9) 11/01/22 14:16 Eos # (Auto) 0.1 10^3/uL (0.0-0.8) 11/01/22 14:16 Baso # (Auto) 0.1 10^3/uL (0.0-0.1) 11/01/22 14:16 Nucleated RBC % (auto) 0 % 11/01/22 14:16 Nucleated RBCs # 0.0 /100WBC 11/01/22 14:16 Blood Type A Positive 11/01/22 14:16 Rho(D) Type Positive 11/01/22 14:16 Antibody Screen Negative 11/01/22 14:16 Vitals Last Vital Signs Temp 97.8 F 11/02/22 18:55 Pulse 85 11/02/22 18:55 Resp 13 11/02/22 18:55 BP 135/77 11/02/22 18:55 Pulse Ox 96 11/02/22 18:55 O2 Del Method Nasal Cannula 11/02/22 19:49 O2 Flow Rate 2 11/02/22 18:55 Discharge Plan Discharge Patient Disposition: Home Condition: Stable Prescriptions: New ibuprofen 800 mg Tablet 800 mg PO Q8H Qty: 30 0RF hydrocodone-acetaminophen 5-325 mg Tablet 1 tab PO Q4H PRN (Reason: Moderate To Severe Pain) Qty: 60 0RF docusate sodium 100 mg Capsule 100 mg PO BID Qty: 60 0RF Continued loratadine [Claritin] 10 mg tablet 10 mg PO DAILY PRN (Reason: allergic symptoms) prenat.vits,anaya,tib-naxb-psbzo Tablet 1 tab PO DAILY Glucosamine Chondroitin 1 tab PO BID Discharge Orders: Discharge Order (Routine); Ordered 11/03/22 Ordered By: Virginia Resendiz Patient Instructions: Opioid Safety Discharge Attestations Time Spent in Discharge Care*: less than 30 min Quality Metrics Clinical Quality Measures [ No reported AMI, CVA or VTE this stay] Coding Level of Care Code Acute Code for Chg Fwd Diagnoses Uterine prolapse N81.4 Thickened endometrium R93.89 Morbid obesity E66.01 PMB (postmenopausal bleeding) N95.0
[2022-11-03 06:17] LABS: Hematocrit 41.4 % (37.0-47.0); Mean Corpuscular HGB Conc 31.4 g/dL (30.0-36.0); Mean Corpuscular Hemoglobin 27.4 pg (28.0-34.0); Mean Corpuscular Volume 87.3 fl (81-99); Mean Platelet Volume 10.4 fL (7.4-10.4); Platelet Count 309 10^3/cmm (130-400); Red Blood Count 4.74 10^6/uL (4.1-5.3); Red Cell Distribution Width 14.3 % (12.1-15.1); White Blood Count 15.9 10^3/uL (4.0-10.0)
[2022-11-03 06:30] VITALS: BP 108/64; PULSE 91; RESP 18; TEMP 36.6; O2SAT 94
--- NOTE | 2022-11-03 06:44 | PC.NURSE ---
Vaginal packing removed from patient at 0600.
[2022-11-03 10:20] VITALS: BP 133/71; PULSE 93; RESP 18; TEMP 36.6; O2SAT 97
== END 2022-11-03 10:23 | disposition home or self-care (01) ==
LOC: OBGYN 18:47
PROVIDERS: Admitting Provider Obstetrics & Gynecology; PCP Family Medicine; Visit Provider Obstetrics & Gynecology
PROC: 0UT9FZZ Resection of Uterus, Via Natural or Artificial Opening With Percutaneous Endoscopic Assistance (ICD-10-PCS; CPT 58552; principal; 2022-11-02 11:55)
PROC: (CPT 58552; 2022-11-02 11:55)
PROC: 0TJB8ZZ Inspection of Bladder, Via Natural or Artificial Opening Endoscopic (ICD-10-PCS; CPT 52000; 2022-11-02 11:55)
DX: N81.4 Uterovaginal prolapse, unspecified (principal); N95.0 Postmenopausal bleeding; E66.01 Morbid (severe) obesity due to excess calories; Z68.41 Body mass index [BMI] 40.0-44.9, adult; N80.03 Adenomyosis of the uterus; K66.0 Peritoneal adhesions (postprocedural) (postinfection); K43.9 Ventral hernia without obstruction or gangrene
CPT/HCPCS: 58552; 36415; 85025; 85027; 86850; 86900; 87086; 88305; G0378; J0131; J0360; J0690; J1100; J1170; J1200; J1885; J2250; J2370; J2405; J2704; J2710; J3010; J3490; J7030; J7121

== ENCOUNTER → 2023-08-08 13:06 | Outpatient (BNVA) | payer OTHER, SELFPAY | PROVIDERS: PCP Family Medicine; Visit Provider Family Medicine | DX: I10 Essential (primary) hypertension (principal) | CPT/HCPCS: 80053; 80061; 84443; 85025 ==

== ENCOUNTER → 2023-11-29 12:22 | Outpatient (BNVA) | payer OTHER, SELFPAY | PROVIDERS: PCP Family Medicine; Visit Provider Family Medicine | DX: E78.5 Hyperlipidemia, unspecified (principal); I10 Essential (primary) hypertension | CPT/HCPCS: 80053; 80061; 84443; 85025 ==

== ENCOUNTER → 2023-12-26 10:17 | Outpatient (BNVA) | payer OTHER, SELFPAY | PROVIDERS: PCP Family Medicine; Visit Provider Nurse Practitioner Women's Health | DX: Z00.00 Encounter for general adult medical examination without abnormal findings (principal) | CPT/HCPCS: 82306; 83036 ==

== ENCOUNTER 2024-01-02 13:18 | Outpatient (CLI) | payer OTHER, SELFPAY ==
--- NOTE | 2024-01-02 13:30 | MM_ITS ---
WS: [id number] BILATERAL 3D TOMOSYNTHESIS DIGITAL SCREENING MAMMOGRAPHY WITH CAD CLINICAL INFORMATION: SCREENING HISTORY: Screening mammogram. No current complaints. COMPARISON: 2022 TECHNIQUE: Bilateral CC and MLO views. FINDINGS: Scattered fibroglandular densities bilaterally. Biopsy clip LEFT breast with stable adjacent ovoid no dule. Few incidental punctate calcifications RIGHT breast. Vascular calcifications. 7 mm ovoid nodule anterior lateral RIGHT breast not previously present. This localizes to the outer b reast on the tomosynthesis. Recommend RIGHT breast ultrasound in further evaluation. LEFT breast is unchanged. MM/[place] [id number] IMPRESSION: BI-RADS: 0-Incomplete: Need additional imaging evaluation FOLLOW UP: Need Additional Imaging Recommend RIGHT breast ultrasound upper outer quadrant.
== END 2024-01-02 13:19 | disposition home or self-care (01) ==
PROVIDERS: PCP Family Medicine; Visit Provider Family Medicine
DX: Z12.31 Encounter for screening mammogram for malignant neoplasm of breast (principal)
CPT/HCPCS: 77063; 77067

== ENCOUNTER 2024-01-12 09:36 | Outpatient (CLI) | payer OTHER, SELFPAY ==
--- NOTE | 2024-01-12 10:00 | US_ITS ---
WS: [id number] RIGHT 3D TOMOSYNTHESIS DIGITAL MAMMOGRAPHY WITH CAD CLINICAL INFORMATION: ABNORMAL MAMMO HISTORY: Additional views COMPARISON: Screening mammogram 01/02/2024 TECHNIQUE: 3 views of the right breast were obtained. FINDINGS: Scattered fibroglandular densities of the right breast. Spot compression views of the upper outer jourdan drant. Persistent small 7 mm ovoid nodule anterior lateral RIGHT breast. Ultrasound of this area is p ending. ULTRASOUND BREAST RIGHT TECHNIQUE: Ultrasound right breast focused area of concern. CLINICAL INFORMATION: ABNORMAL MAMMO FINDINGS: 2 small adjacent cysts in the area of concern have a benign appearance at the 10 o'clock position 4 c m from the nipple. This corresponds to the mammographic findings. The 2 adjacent cysts measure 3 x 3 x 3 mm and 3 x 4 x 3 mm. Recommend return to annual screening mammography. US/US breast RT limited* [id number] IMPRESSION: BI-RADS: 2-Benign FOLLOW UP: 1 Year Follow-up Recommend return to annual screening mammography.
--- NOTE | 2024-01-12 10:04 | MM_ITS ---
WS: [id number] RIGHT 3D TOMOSYNTHESIS DIGITAL MAMMOGRAPHY WITH CAD CLINICAL INFORMATION: ABNORMAL MAMMO HISTORY: Additional views COMPARISON: Screening mammogram 01/02/2024 TECHNIQUE: 3 views of the right breast were obtained. FINDINGS: Scattered fibroglandular densities of the right breast. Spot compression views of the upper outer jourdan drant. Persistent small 7 mm ovoid nodule anterior lateral RIGHT breast. Ultrasound of this area is p ending. ULTRASOUND BREAST RIGHT TECHNIQUE: Ultrasound right breast focused area of concern. CLINICAL INFORMATION: ABNORMAL MAMMO FINDINGS: 2 small adjacent cysts in the area of concern have a benign appearance at the 10 o'clock position 4 c m from the nipple. This corresponds to the mammographic findings. The 2 adjacent cysts measure 3 x 3 x 3 mm and 3 x 4 x 3 mm. Recommend return to annual screening mammography. MM/[place] [id number] IMPRESSION: BI-RADS: 2-Benign FOLLOW UP: 1 Year Follow-up Recommend return to annual screening mammography.
== END 2024-01-12 09:37 | disposition home or self-care (01) ==
LOC: RAD 09:37
PROVIDERS: PCP Family Medicine; Visit Provider Family Medicine
DX: R92.8 Other abnormal and inconclusive findings on diagnostic imaging of breast (principal); R92.323 Mammographic fibroglandular density, bilateral breasts; N63.11 Unspecified lump in the right breast, upper outer quadrant
CPT/HCPCS: 76642; 77061; G0279

== ENCOUNTER → 2024-03-14 09:15 | Outpatient (BNVA) | payer OTHER, SELFPAY | PROVIDERS: PCP Family Medicine; Visit Provider Nurse Practitioner Family | DX: I10 Essential (primary) hypertension (principal) | CPT/HCPCS: 80053; 80061; 83036; 85025 ==

== ENCOUNTER → 2024-08-30 11:36 | Outpatient (BNVA) | payer OTHER, SELFPAY | PROVIDERS: PCP Nurse Practitioner Family; Visit Provider Nurse Practitioner Family | DX: R39.9 Unspecified symptoms and signs involving the genitourinary system (principal) | CPT/HCPCS: 81000 ==

== ENCOUNTER → 2025-05-02 09:52 | Outpatient (BNVA) | payer OTHER, SELFPAY | PROVIDERS: PCP Nurse Practitioner Family; Visit Provider Nurse Practitioner Family | DX: I10 Essential (primary) hypertension (principal); E55.9 Vitamin D deficiency, unspecified | CPT/HCPCS: 80053; 80061; 82306; 83036; 84443; 85025 ==